=== PATIENT | male | born 1995 | race African-American/Black ===

== ENCOUNTER 2016-09-25 18:51 | Emergency (ER) | payer OTHER ==
--- NOTE | 2016-09-25 19:11 | ED ---
Abdominal Pain/Male - HPI Summary HPI Summary: Patient presents with several days of nausea, hot flashes and gas. He also has right sided low back pain for a year without trauma. He denies diarrhea, constipation, vomiting, fever, neck pain, BRICE, or abdominal pain. He feels that his appetite is decreased and he hasn't been drinking as much. He denies sore throat, ear pain, cough, runny nose or congestion. He went to a "free kidney clinic" at [place] and was told "his kidneys are fine". His has been taking antibiotics for a tooth infection anywhere from 1-2 weeks, but he forgets to take the medicine. - History of Current Complaint Chief Complaint: EDAbdPain Stated Complaint: HEAD/ ABD PAIN Time Seen by Provider: 09/25/16 19:11 Hx Obtained From: Patient Onset/Duration: Gradual Onset Timing: Constant Severity Initially: Mild Severity Currently: None Pain Intensity: 0 Location: Other - none Radiates: No Alleviating Factor(s): Nothing Associated Signs And Symptoms: Positive: Decreased Appetite, Nausea, Other - flatulance - Allergies/Home Medications Allergies/Adverse Reactions: Allergies Allergy/AdvReac Type Severity Reaction Status Date / Time No Known Allergies Allergy Verified 09/25/16 18:53 PMH/Surg Hx/FS Hx/Imm Hx Previously Healthy: Yes Infectious Disease History: No Infectious Disease History: Denies: Traveled Outside the [place] in Last 30 Days - Social History Occupation: Unemployed Lives: With Family Alcohol Use: None Substance Use Type: Reports: None, Marijuana - 5 times daily Smoking Status (MU): Never Smoked Tobacco Review of Systems Negative: Fever, Chills, Fatigue Negative: Blurred Vision Negative: Sore Throat, Ear Ache, Nasal Discharge Negative: Chest Pain Negative: Shortness Of Breath Positive: Nausea. Negative: Abdominal Pain, Vomiting, Diarrhea Positive: no symptoms reported Positive: Myalgia - right low back pain Negative: Bruising Negative: Headache, Weakness, Paresthesia All Other Systems Reviewed And Are Negative: Yes Physical Exam Triage Information Reviewed: Yes Vital Signs On Initial Exam: Initial Vitals Temp Pulse Resp BP Pulse Ox 98.4 F 76 16 117/84 100 09/25/16 18:53 09/25/16 18:53 09/25/16 18:53 09/25/16 18:53 09/25/16 18:53 Vital Signs Reviewed: Yes Appearance: Positive: Well-Appearing - Patient is seated on edge of bed in no distress, and is pleasantly engaging, No Pain Distress, Well-Nourished Skin: Positive: Warm, Skin Color Reflects Adequate Perfusion, Dry, Soft Head/Face: Positive: Normal Head/Face Inspection Eyes: Positive: EOMI, ANGELIQUE, Conjunctiva Clear ENT: Positive: Hearing grossly normal, Pharynx normal Neck: Positive: Supple, Nontender, No Lymphadenopathy Respiratory/Lung Sounds: Positive: Clear to Auscultation, Breath Sounds Present Cardiovascular: Positive: RRR Abdomen Description: Positive: Nontender, Soft. Negative: CVA Tenderness (R), CVA Tenderness (L), Distended, Guarding Bowel Sounds: Positive: Present Musculoskeletal: Positive: Strength/ROM Intact, Pain @ - mild TTP right lumbar muscles. Negative: Edema Left, Edema Right Neurological: Positive: Sensory/Motor Intact, Alert, Oriented to Person Place, Time, NV Bundle Intact Distally, Normal Gait Psychiatric: Positive: Affect/Mood Appropriate AVPU Assessment: Alert Diagnostics - Vital Signs Vital Signs Temp Pulse Resp BP Pulse Ox 09/25/16 18:53 98.4 F 76 16 117/84 100 - Laboratory Result Diagrams: 09/25/16 19:50 09/25/16 19:50 Lab Statement: Any lab studies that have been ordered have been reviewed, and results considered in the medical decision making process. Re-Evaluation - Re-Evaluation First Eval Re-Evaluation Time: 20:40 Change: Improved - patient feels better and wants to be discharged Abdominal Pain Fem Course/Dx - Diagnoses Differential Diagnosis/HQI/PQRI: Appendicitis, Bowel Obstruction, Constipation, Ischemic Bowel, Renal Colic, Urinary Tract Infection Provider Diagnoses: Nausea, Back pain Discharge - Discharge Plan Condition: Stable Disposition: HOME Patient Education Materials: Acute Nausea and Vomiting (ED), Back Pain (ED) Referrals: Ba Gamboa MD [Primary Care Provider] - Additional Instructions: Please follow-up with your regular doctor if your symptoms continue. Return to the emergency department if your symptoms worsen.
[2016-09-25] MEDS ORDERED: NS 0.9% 1000 ML* 1,000 ML IV ONE (19:36)
[2016-09-25 20:00] LABS: Hematocrit 43 % (42-52); Hemoglobin 14.3 g/dl (14.0-18.0); Mean Corpuscular HGB Conc 33 g/dl (31-36); Mean Corpuscular Hemoglobin 27 pg (27-31); Mean Corpuscular Volume 80 fL (80-94); Mean Platelet Volume 10 um3 (7.4-10.4); Red Blood Count 5.37 10^6/ul (4.0-5.4); Red Cell Distribution Width 14 % (10.5-15); White Blood Count 6.2 10^3/ul (3.5-10.8)
[2016-09-25 20:01] LABS: Add Diff/Slide Review? Slide Review Added; Comments Flag Yes
[2016-09-25 20:22] LABS: ALT 14 U/L (7-52); AST 20 U/L (13-39); Albumin 4.7 g/dL (3.2-5.2); Alkaline Phosphatase 80 U/L (34-104); Amylase 85 U/L (29-103); Anion Gap 10 mmol/L (2-11); Blood Urea Nitrogen 16 mg/dL (6-24); C Reactive Protein < 1.00 mg/L (< 5.00); CO2 Carbon Dioxide 26 mmol/L (22-32); Calcium 9.8 mg/dL (8.6-10.3); Chloride 100 mmol/L (101-111); EGFR African American 131.6 (>60); EGFR Non-African American 102.3 (>60); Globulin 3.2 g/dL (2-4); Glucose 122 mg/dL (70-100); Lipase 19 U/L (11.0-82.0); Potassium 3.3 mmol/L (3.5-5.0); Sodium 136 mmol/L (133-145); Total Protein 7.9 g/dL (6.4-8.9)
[2016-09-25 21:41] VITALS: BP 119/69
== END 2016-09-25 21:41 | disposition home or self-care (01) ==
LOC: ED 18:51
DX: M54.5 Low back pain (principal); R11.0 Nausea
CPT/HCPCS: 36415; 80053; 82150; 83690; 85025; 86140; 99283

== ENCOUNTER 2017-05-26 10:00 | Emergency (ER) | payer SELFPAY ==
--- NOTE | 2017-05-26 11:22 | UC ---
Shoulder Pain HPI - HPI Summary HPI Summary: 3 days ago injured at work lifting a heavy box. Commodore pull in LT shoulder. Immediate pain on the anterior aspect of shoulder. Has not tried anything OTC. Has been trying to rest his shoulder as much as possible - History of Current Complaint Chief Complaint: UCUpperExtremity Stated Complaint: SHOULDER PAIN Time Seen by Provider: 05/26/17 11:21 Hx Obtained From: Patient Onset/Duration: Sudden Onset Timing: Constant Severity Initially: Moderate Severity Currently: Moderate Pain Intensity: 6 Pain Scale Used: 0-10 Numeric Character: Sharp, Aching Aggravating Factor(s): Movement, Lifting Alleviating Factor(s): Rest, Ice Associated Signs And Symptoms: Negative: Swelling, Redness, Bruising, Fever - Allergies/Home Medications Allergies/Adverse Reactions: Allergies Allergy/AdvReac Type Severity Reaction Status Date / Time NSAIDs Allergy Swelling Verified 05/26/17 11:06 Home Medications: Home Medications NK [No Home Medications Reported] 05/26/17 [History Confirmed 05/26/17] PMH/Surg Hx/FS Hx/Imm Hx Previously Healthy: Yes - Surgical History Surgical History: Yes Surgery Procedure, Year, and Place: wisdom teeth - Family History Known Family History: Positive: Unknown - Social History Occupation: Employed Full-time Lives: With Family Alcohol Use: None Substance Use Type: Marijuana Substance Use Comment - Amount & Last Used: occasionally Smoking Status (MU): Never Smoked Tobacco Review of Systems Constitutional: Negative Skin: Negative Respiratory: Negative Cardiovascular: Negative Motor: Weakness - LT shoulder Neurovascular: Negative Musculoskeletal: Decreased ROM - LT shoulder, Other: - Pain LT shoulder Neurological: Negative Psychological: Negative Is Patient Immunocompromised?: No All Other Systems Reviewed And Are Negative: Yes Physical Exam Triage Information Reviewed: Yes Appearance: Pain Distress Vital Signs: Initial Vital Signs Temp 99.1 F 05/26/17 11:06 Pulse 75 05/26/17 11:06 Resp 16 05/26/17 11:06 BP 121/68 05/26/17 11:06 Pulse Ox 100 05/26/17 11:06 Vital Signs Reviewed: Yes Respiratory Exam: Normal Respiratory: Positive: Chest non-tender, Lungs clear, Normal breath sounds Cardiovascular Exam: Normal Cardiovascular: Positive: RRR, No Murmur Musculoskeletal: Positive: Strength Limited @ - LT shoulder 2/5., ROM Limited @ - LT shoulder pain >90deg flexion, Other: - TTP over AC joint. Pain with internal and external rotation. Positive Bergeron. Positive Neers. Negative empty can. No biceps deformity. Neurological Exam: Normal Neurological: Positive: Alert, Muscle Tone Normal Psychological Exam: Normal Psychological: Positive: Age Appropriate Behavior Diagnostics - Laboratory Diagnostic Studies Completed/Ordered: Shoulder XR shows mild AC joint separation Shoulder Course/Dx - Course Course Of Treatment: Pt TIERA and exam is consistent with rotator cuff pathology. XR today showed mild AC joint separation. Rx for sling. Light duty no lifting > 10lbs. Pt says he does not like taking medicine and does not want anything for pain - mentioned he can take Ibuprofen OTC for pain prn. Follow up with ortho JESSICA Assessment/Plan: Pt TIERA and exam is consistent with rotator cuff pathology. XR today shows mild AC joint separation. Rx for sling. Light duty at work - no lifting >10lbs. Pt says he does not like taking medicine and does not want anything for pain - mentioned he can take Ibuprofen OTC for pain prn. Follow up with ortho at next available - Differential Dx/Diagnosis Differential Diagnosis/HQI/PQRI: Bursitis, Rotator Cuff Injury, Sprain, Strain Provider Diagnoses: AC joint separation mild Discharge - Discharge Plan Condition: Stable Disposition: HOME Patient Education Materials: Shoulder Separation Exercises (GEN), Rotator Cuff Injury (ED) Forms: *Work Release Referrals: Camilo Lam MD [Medical Doctor] - As Soon As Possible Ba Gamboa MD [Primary Care Provider] - Additional Instructions: Use sling during work hours only. Movement of left shoulder as tolerated outside of that time. Light duty at work. No lifting >10lbs until follow up with orthopedics. Ibuprofen OTC for pain as needed. Please call orthopedics to schedule a follow up appointment. If you develop a fever, chills, SOB, chest pain, new, or worsening symptoms - please call our office or go to ED.
--- NOTE | 2017-05-26 12:01 | RAD ---
Indication: Left shoulder injury and pain. 4 views of left shoulder demonstrates mild widening of the acromioclavicular interval. AC joint separation should be considered. There is an os acromiale he noted. IMPRESSION: There is widening of the AC joint. There is an os acromiale noted.
[2017-05-26 12:12] VITALS: BP 125/64
== END 2017-05-26 11:23 | disposition home or self-care (01) ==
LOC: UCEAST 10:00
DX: S43.112A Subluxation of left acromioclavicular joint, initial encounter (principal); X50.0XXA Overexertion from strenuous movement or load, initial encounter; Y93.9 Activity, unspecified; Y92.9 Unspecified place or not applicable; Y99.9 Unspecified external cause status; Z88.6 Allergy status to analgesic agent
CPT/HCPCS: 99211; G0463

== ENCOUNTER 2019-03-17 00:53 | Emergency (ER) | payer OTHER ==
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
[2019-03-17] MEDS ORDERED: NS 0.9% 1000 ML** 1,000 ML IV ONE (01:07)
[2019-03-17] MEDS ORDERED: ceFAZolin 1 GM ADVAN(*) 1 GM in NS 0.9% 50 ML* 50 ML IVPB ONE (01:08)
[2019-03-17] MEDS ORDERED: Tetan/Diph/Pertus SYR(Tdap)* 0.5 ML SYR(BOOSTRIX) use SYR contains LATEX IM ONE (01:08)
[2019-03-17] MEDS ORDERED: NS 0.9% 1000 ML** 1,000 ML IV SCH (01:15)
[2019-03-17] MEDS ORDERED: Morphine 4 MG/ML VIAL (1 ml) 4 MG/ML VIAL ONE (01:19)
[2019-03-17] MEDS ORDERED: Morphine 4 MG/ML VIAL (1 ml) 4 MG/ML VIAL IV ONE (01:24)
[2019-03-17 01:32] LABS: Hematocrit 42 % (42-52); Hemoglobin 14.3 g/dL (14.0-18.0); Mean Corpuscular HGB Conc 34 g/dL (31-36); Mean Corpuscular Hemoglobin 27 pg (27-31); Mean Corpuscular Volume 81 fL (80-94); Mean Platelet Volume 10.1 fL (7.4-10.4); Platelet Count 216 10^3/uL (150-450); Red Blood Count 5.23 10^6 /uL (4.18-5.48); Red Cell Distribution Width 14 % (10-15); White Blood Count 12.7 10^3/uL (3.5-10.8)
[2019-03-17 01:33] LABS: INR 1.08 (0.82-1.09)
[2019-03-17 01:34] LABS: ABS Basophils 0.1 10^3/ul (0-0.2); ABS Eosinophils 0.3 10^3/ul (0-0.6); ABS Lymphocytes 5.8 10^3/ul (1.0-4.8); ABS Monocytes 0.9 10^3/ul (0-0.8); ABS Neutrophils 5.8 10^3/ul (1.5-7.7); Albumin 4.9 g/dL (3.2-5.2); Albumin/Globulin Ratio 1.8 (1-3); BUN/Creatinine Ratio 11.7 (8-20); Calcium 9.6 mg/dL (8.6-10.3); EGFR African American 100.2 (>60); EGFR Non-African American 82.8 (>60); Globulin 2.8 g/dL (2-4); Lymphocyte % 45.2 %; Nucleated Red Blood Cells % 0.1; Total Bilirubin 0.5 mg/dL (0.2-1.0); Total Protein 7.7 g/dL (6.4-8.9)
[2019-03-17] MEDS ORDERED: Lidocaine 2% MPF* 2 ML VIAL ONE ×2 (01:36→01:40)
[2019-03-17] MEDS ORDERED: fentaNYL* 50 MCG/ML 2 ML VIAL (100 MCG VIAL) ONE (01:44)
[2019-03-17] MEDS: fentaNYL* 50 MCG/ML 2 ML VIAL (100 MCG VIAL) IV SLOW PU ONE ×2 (01:46→01:58)
[2019-03-17] MEDS ORDERED: Lidocaine 2% MPF* 2 ML VIAL INJ ONE (01:55)
[2019-03-17 02:17] VITALS: BP 146/83
== END 2019-03-17 02:17 | disposition short-term general hospital (02) ==
LOC: ED 00:53
DX: S21.202A Unspecified open wound of left back wall of thorax without penetration into thoracic cavity, initial encounter (principal); S27.2XXA Traumatic hemopneumothorax, initial encounter; Z23 Encounter for immunization; W34.00XA Accidental discharge from unspecified firearms or gun, initial encounter; Y92.9 Unspecified place or not applicable; Z88.6 Allergy status to analgesic agent
CPT/HCPCS: 32551; 36415; 71045; 80053; 83690; 85025; 85060; 85610; 86850; 86900; 86901; 90471; 90715; 96361; 96365; 96375; 99285; J0690; J2270; J3010

== ENCOUNTER 2019-05-14 14:19 | Emergency (ER) | payer OTHER ==
[2019-05-14 15:11] LABS: ABS Basophils 0.1 10^3/ul (0-0.2); ABS Eosinophils 0.2 10^3/ul (0-0.6); ABS Lymphocytes 1.4 10^3/ul (1.0-4.8); ABS Monocytes 0.5 10^3/ul (0-0.8); ABS Neutrophils 5.4 10^3/ul (1.5-7.7); Eosinophil % 2.1 %; Hematocrit 45 % (42-52); Hemoglobin 14.9 g/dL (14.0-18.0); Lymphocyte % 18.4 %; Mean Corpuscular HGB Conc 34 g/dL (31-36); Mean Corpuscular Hemoglobin 27 pg (27-31); Mean Corpuscular Volume 82 fL (80-94); Mean Platelet Volume 8.8 fL (7.4-10.4); Platelet Count 205 10^3/uL (150-450); Red Blood Count 5.45 10^6 /uL (4.18-5.48); Red Cell Distribution Width 14 % (10-15); White Blood Count 7.6 10^3/uL (3.5-10.8)
[2019-05-14 15:32] LABS: Albumin 4.9 g/dL (3.2-5.2); Albumin/Globulin Ratio 1.6 (1-3); BUN/Creatinine Ratio 13.1 (8-20); Calcium 9.9 mg/dL (8.6-10.3); EGFR African American 104.6 (>60); EGFR Non-African American 86.4 (>60); Potassium 3.6 mmol/L (3.5-5.0); Total Bilirubin 0.5 mg/dL (0.2-1.0); Total Protein 7.9 g/dL (6.4-8.9)
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
[2019-05-14 16:33] VITALS: BP 126/79
== END 2019-05-14 16:44 | disposition home or self-care (01) ==
LOC: ED 14:19
DX: R06.00 Dyspnea, unspecified (principal); Z88.6 Allergy status to analgesic agent
CPT/HCPCS: 36415; 71046; 80053; 84484; 85025; 93005; 99282